=== PATIENT | male | born 1950 | race Caucasian/White ===

== ENCOUNTER 2020-12-12 06:31 | Inpatient (IN) | payer OTHER ==
[~2020-12-12] VITALS: Ht 167.6 cm; Wt 47.8 kg
--- NOTE | 2020-12-12 06:45 | NUR ---
pt [id number] from [facility] with c/o blood in stool and vomitting. pt alert but none responsive. not ambulatory with esparza and g tube in place.
[2020-12-12] MEDS ORDERED: IV NS 0.9% 500 ML BAG IV ONE (07:00)
--- NOTE | 2020-12-12 07:05 | NUR ---
line established R 20g AC & L 18g AC
--- NOTE | 2020-12-12 07:13 | NUR ---
BLOOD AND URINE SPECIMEN COLLECTED AND SENT TO LAB
[2020-12-12 07:53] LABS: BASOPHILS # (AUTO) 0.1 K/uL (0.0-0.2); BASOPHILS % (AUTO) 0.3 % (0.0-2.0); EOSINOPHILS % (AUTO) 1.4 % (0.0-6.0); HEMATOCRIT 37 % (39-51); HEMOGLOBIN 12.1 g/dL (13.5-17.5); LYMPHOCYTES # (AUTO) 1.9 K/uL (0.8-4.8); MEAN CORPUSCULAR HGB CONC 33 g/dl (31.0-36.0); MEAN CORPUSCULAR VOLUME 96 fL (80-96); MONOCYTES # (AUTO) 1.1 K/uL (0.1-1.30); MONOCYTES % (AUTO) 6.2 % (2.0-12.0); NEUTROPHILS # (AUTO) 14.3 K/uL (1.8-8.9); NEUTROPHILS % (AUTO) 81.1 % (43.0-81.0); PLATELET COUNT (AUTO) 510 K/uL (150-450); RED BLOOD CELL COUNT(AUTO) 3.86 MIL/uL (4.5-6.0); WHITE BLOOD COUNT (AUTO) 17.6 K/uL (4.3-11.0)
[2020-12-12 08:02] LABS: CARBON DIOXIDE 26 mmol/L (21-32); CHLORIDE 106 mmol/L (98-107); CREATININE 0.7 mg/dL (0.6-1.3); GLUCOSE 139 mg/dL (74-106); POTASSIUM 5.3 mmol/L (3.5-5.1); SODIUM SERUM 140 mmol/L (136-145); UREA NITROGEN, BLOOD 17 mg/dL (7-18)
--- NOTE | 2020-12-12 08:02 | NUR ---
THE PATIENT IS RECEICED IN ER BED #9. IN ROOM AIR. RESPIRATION REGULAR AND UNLABORED. THE PATIENT IS IN NO APPARENT DISTRESS. ATTACHED TO THE MONITOR. WARM BLANKET PROVIDED FOR COMFORT. WILL CONTINUE TO MONITOR THE PATIENT.
[2020-12-12 08:07] LABS: ALANINE AMINOTRANSFERASE 37 U/L (12-78); ALBUMIN 2.8 g/dL (3.4-5.0); ALKALINE PHOSPHATASE 80 U/L (46-116); BILIRUBIN,DIRECT 0.1 mg/dL (0.0-0.2); BILIRUBIN,TOTAL 0.2 mg/dL (0.2-1.0); LIPASE 290 U/L (73-393)
[2020-12-12 08:25] LABS: ASPARTATE AMINOTRANSFERASE 23 U/L (15-37)
[2020-12-12] MEDS ORDERED: DOCU50LI GT (08:27)
[2020-12-12] MEDS ORDERED: GLUC1KIT IM (08:27)
[2020-12-12] MEDS ORDERED: INSU100V27 SQ (08:27)
[2020-12-12] MEDS ORDERED: AMLO-212 GT (08:27)
[2020-12-12] MEDS ORDERED: ZINC1CAP3 GT (08:27)
[2020-12-12] MEDS ORDERED: ASCO500P18 PO (08:27)
[2020-12-12] MEDS ORDERED: NA P133E RC (08:27)
[2020-12-12] MEDS ORDERED: FAMO20TA8 GT (08:27)
[2020-12-12] MEDS ORDERED: POLY17PO4 GT (08:27)
[2020-12-12] MEDS ORDERED: BACL10TA GT (08:27)
[2020-12-12] MEDS ORDERED: BISA10SU11 RC (08:27)
[2020-12-12] MEDS ORDERED: ASCO-352 GT (08:27)
[2020-12-12] MEDS ORDERED: MAGN400O6 GT (08:27)
[2020-12-12] MEDS ORDERED: NABU-139 GT (08:27)
[2020-12-12] MEDS ORDERED: ATOR40TA GT (08:27)
[2020-12-12] MEDS ORDERED: CRAN3875 GT (08:27)
[2020-12-12] MEDS ORDERED: AMIN30LI27 GT (08:27)
[2020-12-12] MEDS ORDERED: ASPI-1169 GT (08:27)
[2020-12-12] MEDS ORDERED: Modafinil GT (08:27)
[2020-12-12] MEDS ORDERED: ACET650S26 GT (08:27)
[2020-12-12] MEDS ORDERED: MULT9LIQ6 GT (08:27)
[2020-12-12] MEDS ORDERED: METRONIDAZOLE 500MG/ NS 100ML 100 ML IV ONE (09:00)
[2020-12-12] MEDS ORDERED: LEVOFLOXACIN 750 MG /D5W 150ML 150 ML IV ONE (09:00)
--- NOTE | 2020-12-12 09:25 | NUR ---
COVID SWAB SENT.
[2020-12-12] MEDS ORDERED: IV NS 0.9% 1,000 ML BAG IV ONE (09:30)
[2020-12-12] MEDS ORDERED: ONDANSETRON HCL/PF 4 MG/2 ML VIAL IVP PRN (10:00)
[2020-12-12] MEDS ORDERED: ACETAMINOPHEN 325 MG TABLET PO PRN (10:00)
[2020-12-12] MEDS ORDERED: Z GUARD REMEDY 2 OZ OINT TP PRN (10:00)
[2020-12-12] MEDS ORDERED: SODIUM POLYSTYRENE SULF. PWD 15 GM UDC PO ONE (10:30)
[2020-12-12] MEDS ORDERED: PANTOPRAZOLE 40 MG VIAL ONE (11:20)
[2020-12-12] MEDS ORDERED: SODIUM POLYSTYRENE SULFONATE 15 G/60 ML BOTTLE ONE ×2 (11:20→11:26)
[2020-12-12] MEDS: PANTOPRAZOLE 40 MG VIAL IV SCH (11:21)
--- NOTE | 2020-12-12 12:49 | NUR ---
room [id number]
--- NOTE | 2020-12-12 12:54 | NUR ---
report given to Tristen LOPEZ for geremias.
[2020-12-12 13:15] VITALS: BP 143/69
--- NOTE | 2020-12-12 13:15 | NUR ---
THE PATIENT IS TRANSFERED TO ASSIGNED ROOM PER ACLS POLICY.
--- NOTE | 2020-12-12 13:20 | NUR ---
RN NOTE RECEIVED PT FROM ER. BROUGHT IN VIA GURNEY. STABLE ON ROOM AIR, SATURATING @97%. NO SOB OR ANY S/S OF RESPIRATORY DISTRESS NOTED. ALERT, NONVERBAL. SKIN IS INTACT. NO PAIN REPORTED AT THIS TIME. IV ACCESS ON L AC #20 AND RFA #20 BOTH INTACT, PATENT AND FLUSHED. NO BELONGINGS. MCQUEEN CATH IN PLACE, DRAINING YELLOW URINE VIA GRAVITY. SAFETY MEASURES IMPLEMENTED. CALL LIGHT WITHIN REACH. BED LOCKED AND IN LOWEST POSITION WITH SIDE RAILS UP X3. WILL CONTINUE TO MONITOR.
[2020-12-12] MEDS: METRONIDAZOLE 500MG/ NS 100ML 500 MG in PREMIX 1 EA IV SCH ×3 (14:21→23:27)
[2020-12-12] MEDS: IV NS 0.9% 1,000 ML IV PRN (14:21)
[2020-12-12 16:00] VITALS: BP 124/64
--- NOTE | 2020-12-12 16:01 | NUR ---
PATIENT PULLING LINES UNABLE TO FOLLOW COMMAND,FORGETFUL, NOTIFIED,WILL USE HAND MITTENS TO LEFT HAND FOR SAFETY.WILL CONTINUE TO MONITOR.
[2020-12-12] MEDS ORDERED: NABUMETONE 500 MG TABLET GT SCH ×2 (17:00)
--- NOTE | 2020-12-12 18:50 | NUR ---
RN CLOSING NOTES NO SIGNIFICANT CHANGES THROUGHOUT THE SHIFT. NO SOB OR ANY DISTRESS NOTED. NO PAIN REPORTED AT THIS TIME. KEPT CLEAN AND COMFORTABLE. ALL DUE MEDS GIVEN. NEEDS ATTENDED. SAFETY MEASURES IN PLACE. WILL ENDORSE TO NIGHT RN FOR CHELSEA.
--- NOTE | 2020-12-12 19:45 | NUR ---
RN OPENING NOTES RECEIVED PT STABLE ON ROOM AIR, SATURATING @97%. NO SOB OR ANY S/S OF RESPIRATORY DISTRESS NOTED. ALERT, NONVERBAL. NO PAIN REPORTED AT THIS TIME. IV ACCESS ON LAC #20 AND RFA #20 BOTH INTACT, PATENT AND FLUSHED. MCQUEEN CATH IN PLACE, DRAINING YELLOW URINE VIA GRAVITY. SAFETY MEASURES IMPLEMENTED. CALL LIGHT WITHIN REACH. PT HAS ON L HAND MITTEN AT THIS TIME. BED LOCKED AND IN LOWEST POSITION WITH SIDE RAILS UP X3. WILL CONTINUE TO MONITOR.
[2020-12-12 20:51] VITALS: BP 145/74
[2020-12-12] MEDS: ATORVASTATIN 40 MG TABLET GT SCH (21:50)
[2020-12-13] VITALS: BP 152/73
[2020-12-13 04:37] VITALS: BP 138/73
[2020-12-13] MEDS: METRONIDAZOLE 500MG/ NS 100ML 500 MG in PREMIX 1 EA IV SCH ×4 (05:28→23:04)
--- NOTE | 2020-12-13 06:44 | NUR ---
RN CLOSING NOTES PT STABLE ON ROOM AIR, SATURATING @97%. NO SOB OR ANY S/S OF RESPIRATORY DISTRESS NOTED. ALERT, NONVERBAL. NO PAIN REPORTED AT THIS TIME. IV ACCESS ON LAC #20 A INTACT, PATENT AND FLUSHED. MCQUEEN CATH IN PLACE, DRAINING YELLOW URINE VIA GRAVITY. SAFETY MEASURES IMPLEMENTED. CALL LIGHT WITHIN REACH. PT HAS ON L HAND MITTEN AT THIS TIME. BED LOCKED AND IN LOWEST POSITION WITH SIDE RAILS UP X3. WILL ENDORSE CARE TO DAY SHIFT NURSE.
[2020-12-13 08:00] VITALS: BP 155/78
[2020-12-13 08:00] LABS: BASOPHILS % (AUTO) 0.3 % (0.0-2.0); EOSINOPHILS % (AUTO) 1.9 % (0.0-6.0); HEMATOCRIT 32 % (39-51); HEMOGLOBIN 11.1 g/dL (13.5-17.5); LYMPHOCYTES # (AUTO) 1.9 K/uL (0.8-4.8); LYMPHOCYTES % (AUTO) 17.4 % (20.0-44.0); MEAN CORPUSCULAR HGB CONC 34 g/dl (31.0-36.0); MEAN CORPUSCULAR VOLUME 94 fL (80-96); MONOCYTES # (AUTO) 0.8 K/uL (0.1-1.30); MONOCYTES % (AUTO) 7.8 % (2.0-12.0); NEUTROPHILS # (AUTO) 7.9 K/uL (1.8-8.9); NEUTROPHILS % (AUTO) 72.6 % (43.0-81.0); PLATELET COUNT (AUTO) 467 K/uL (150-450); RED BLOOD CELL COUNT(AUTO) 3.41 MIL/uL (4.5-6.0); WHITE BLOOD COUNT (AUTO) 10.9 K/uL (4.3-11.0)
--- NOTE | 2020-12-13 08:15 | NUR ---
RN OPENING NOTES PT AWAKE AND STABLE ON ROOM AIR, SATURATING @97%. NO SOB OR ANY S/S OF RESPIRATORY DISTRESS NOTED. ALERT, NONVERBAL. NO PAIN REPORTED AT THIS TIME. IV ACCESS ON LAC #20 INTACT, PATENT AND RUNNING NS @75 ML/HR. MCQUEEN CATH IN PLACE, DRAINING YELLOW URINE VIA GRAVITY. SAFETY MEASURES IMPLEMENTED. CALL LIGHT WITHIN REACH. GT IS CLAMPED AND PT IS NPO. PORTABLE TELE MONITOR CHECKED AND WORKING. PT HAS ON L HAND MITTEN AT THIS TIME. BED LOCKED AND IN LOWEST POSITION WITH SIDE RAILS UP X3. WILL CONTINUE TO MONITOR
[2020-12-13 08:23] LABS: ALBUMIN 2.5 g/dL (3.4-5.0); BILIRUBIN,TOTAL 0.4 mg/dL (0.2-1.0); CALCIUM, SERUM 8.5 mg/dL (8.5-10.1); CREATININE 0.7 mg/dL (0.6-1.3); MAGNESIUM 1.9 mg/dL (1.8-2.4); PHOSPHORUS 2.6 mg/dL (2.5-4.9); POTASSIUM 3.9 mmol/L (3.5-5.1); TOTAL PROTEIN, SERUM 6.3 g/dL (6.4-8.2)
[2020-12-13 08:33] LABS: THYROID STIMULATING HORMONE 3.499 uIU/mL (0.358-3.74)
[2020-12-13] MEDS: AMLODIPINE BESYLATE 5 MG TABLET GT SCH (08:51)
[2020-12-13] MEDS: LEVOFLOXACIN 500 MG /D5W 100ML 500 MG in PREMIX 1 EA IV SCH (08:52)
[2020-12-13] MEDS: PANTOPRAZOLE 40 MG VIAL IV SCH (09:39)
[2020-12-13 12:00] VITALS: BP 132/78
--- NOTE | 2020-12-13 12:06 | NUR ---
RN NOTE SEE BY DR. GANT, NO GI CONSULT NEEDED AT THIS TIME ORDERED, START ON TUBE FEEDING PER MD CONTINUE PREVIOUS TUBE FEEDING, CALLED [facility] NURSE CARMELO PREVIOUS FEEDING OF GLUCERNA 1.2 @ 600CC/HR X 20HRS /DAY, ORDERS NOTED CARRIED OUT, WILL CONTINUE TO MONITOR FOR BLEEDING.
[2020-12-13] MEDS: IV NS 0.9% 1,000 ML IV PRN ×2 (15:31→17:42)
--- NOTE | 2020-12-13 15:40 | NUR ---
RN NOTE BLOOD CULTURE PRELIMINARY REPORT POSITIVE FOR GRAM + COCCI IN [place], CALLED [facility], Jakob WOODSON NOTIFIED.
[2020-12-13 16:00] VITALS: BP 135/78
[2020-12-13] MEDS: GLUCERNA 1.2 1,000 ML BOTTLE GT PRN (18:06)
--- NOTE | 2020-12-13 18:49 | NUR ---
RN CLOSING NOTES PT STABLE ON ROOM AIR, SATURATING @97%. NO SOB OR ANY S/S OF RESPIRATORY DISTRESS NOTED. ALERT, NONVERBAL. NO PAIN REPORTED AT THIS TIME. IV ACCESS ON LAC #20 A INTACT, PATENT AND FLUSHED. MCQUEEN CATH IN PLACE, DRAINING YELLOW URINE VIA GRAVITY. URINE OUTPUT OF 700 ML GT TUBE ON RUNNING AT 30ML WITH THE GOAL TO BE 60 ML/HR SAFETY MEASURES IMPLEMENTED. CALL LIGHT WITHIN REACH. PT HAS ON L HAND MITTEN AT THIS TIME. BED LOCKED AND IN LOWEST POSITION WITH SIDE RAILS UP X3. WILL ENDORSE CARE TO DAY SHIFT NURSE.
--- NOTE | 2020-12-13 19:30 | NUR ---
RN NOTE RECEIVED PATIENT ON ISOLATION FOR COVID. PATIENT IS NONVERBAL. TOLERATING ROOM AIR. RESPIRATIONS ARE EVEN AND UNLABORED. NO S/S SOB NOTED. NO S/S PAIN AT THIS TIME. EXTERNAL TELE MONITOR READS SINUS TACH. IN NO APPARENT DISTRESS. IV ACCESS IN LAC#20 RUNNING NS@75ML/HR. GTUBE PRESENT, NO RESIDUAL, INCREASED GLUCERNA FEEDING TO 40ML/HR. MCQUEEN CATHETER PRESENT, DRAINING TO GRAVITY. LEFT MITTEN RESTRAINT ON, NO REDNESS, GOOD CAP REFILL. BED IS LOW AND LOCKED, HOB ELEVATED IN SEMI FOWLERS, SIDE RAILS UP X2, CALL LIGHT WITHIN REACH. WILL CONTINUE TO MONITOR THROUGHOUT SHIFT.
[2020-12-13 20:00] VITALS: BP 139/76
[2020-12-13] MEDS: ATORVASTATIN 40 MG TABLET GT SCH (21:26)
[2020-12-13 22:59] LABS: OCCULT BLOOD STOOL POSITIVE (NEGATIVE)
[2020-12-14] VITALS: BP 128/61
[2020-12-14 04:00] VITALS: BP 135/61
[2020-12-14] MEDS: METRONIDAZOLE 500MG/ NS 100ML 500 MG in PREMIX 1 EA IV SCH (05:37)
[2020-12-14] MEDS: IV NS 0.9% 1,000 ML IV PRN ×2 (05:59→21:28)
--- NOTE | 2020-12-14 07:13 | NUR ---
RN NOTE ON COVID ISOLATION. NONVERBAL. REMAINS TOLERATING ROOM AIR. NO RESP DISTRESS. NO PAIN. TELE MONITOR READS SINUS TACH. NO DISTRESS. IV ACCESS MAINTAINED IN LAC#20 RUNNING NS@75ML/HR. GTUBE RUNNING GLUCERNA @60ML/HR. PATIENT HAD TO BLOODY BM, LOOKED LIKE BLOOD CLOTS AND NOT STOOL. BRIGHT RED. MCQUEEN CATHETER OUTPUT 400ML. LEFT MITTEN RESTRAINT MAINTAINED WITH NO REDNESS OR INJURY. BED REMAINS LOW AND LOCKED, HOB ELEVATED IN SEMI FOWLERS, SIDE RAILS UP X2, CALL LIGHT WITHIN REACH. WILL ENDORSE TO ONCOMING SHIFT.
--- NOTE | 2020-12-14 07:30 | NUR ---
RN NOTE RECEIVED PATIENT ON ISOLATION FOR COVID. PATIENT IN BED, AWAKE, PATIENT IS NONVERBAL. TOLERATING ROOM AIR. RESPIRATIONS ARE EVEN AND UNLABORED. NO S/S SOB NOTED. NO S/SX PAIN NOTED AT THIS TIME. EXTERNAL TELE MONITOR READS SINUS TACH. IN NO APPARENT DISTRESS. IV ACCESS IN LAC#20 RUNNING NS@75ML/HR. G-TUBE IN PLACE, NO RESIDUAL, TOLERATING ONGOING FEEDING OF GLUCERNA AT 60ML/HR. MCQUEEN CATHETER PRESENT, DRAINING TO GRAVITY. LEFT MITTEN RESTRAINT ON, NO REDNESS, GOOD CAP REFILL. SAFETY MEASURES IN PLACE: BED IN LOWEST POSITION AND LOCKED, HOB ELEVATED IN SEMI FOWLERS, SIDE RAILS UP X2, CALL LIGHT WITHIN REACH. WILL CONTINUE TO MONITOR ACCORDINGLY.
[2020-12-14 08:02] VITALS: BP 95/60
[2020-12-14] MEDS: LEVOFLOXACIN 500 MG /D5W 100ML 500 MG in PREMIX 1 EA IV SCH (08:20)
[2020-12-14] MEDS: AMLODIPINE BESYLATE 5 MG TABLET GT SCH (08:22)
[2020-12-14] MEDS: PANTOPRAZOLE 40 MG VIAL IV SCH (09:35)
[2020-12-14 10:14] LABS: BASOPHILS % (AUTO) 0.2 % (0.0-2.0); EOSINOPHILS % (AUTO) 1.3 % (0.0-6.0); HEMATOCRIT 29 % (39-51); HEMOGLOBIN 9.8 g/dL (13.5-17.5); LYMPHOCYTES # (AUTO) 1.8 K/uL (0.8-4.8); LYMPHOCYTES % (AUTO) 16.9 % (20.0-44.0); MEAN CORPUSCULAR HGB CONC 34 g/dl (31.0-36.0); MEAN CORPUSCULAR VOLUME 95 fL (80-96); MONOCYTES # (AUTO) 0.8 K/uL (0.1-1.30); MONOCYTES % (AUTO) 7.3 % (2.0-12.0); NEUTROPHILS # (AUTO) 7.7 K/uL (1.8-8.9); NEUTROPHILS % (AUTO) 74.3 % (43.0-81.0); PLATELET COUNT (AUTO) 486 K/uL (150-450); RED BLOOD CELL COUNT(AUTO) 3.09 MIL/uL (4.5-6.0); WHITE BLOOD COUNT (AUTO) 10.4 K/uL (4.3-11.0)
[2020-12-14] MEDS: METRONIDAZOLE 250 MG TABLET GT SCH ×3 (12:22→23:28)
[2020-12-14 12:31] VITALS: BP 101/60
[2020-12-14] MEDS: GLUCERNA 1.2 1,000 ML BOTTLE GT PRN (14:18)
[2020-12-14 16:00] VITALS: BP 127/71
--- NOTE | 2020-12-14 18:39 | NUR ---
RN CLOSING NOTES PT IN RESTING IN BED, ON ROOM AIR, SATURATING @97%. NO SOB OR ANY S/S OF RESPIRATORY DISTRESS NOTED. ALERT, NONVERBAL. NO S/SX OF PAIN NOTED AT THIS TIME. IV ACCESS ON RIGHT WRIST #20 A INTACT, PATENT AND FLUSHES WELL, NO S/SX OF INFILTRATION NOTED. MCQUEEN CATH IN PLACE, DRAINING YELLOW URINE VIA GRAVITY. URINE OUTPUT OF 700 ML , GT TUBE ON RUNNING AT 60ML. SAFETY MEASURES MAINTAINED THROUGHOUT THE SHIFT. CALL LIGHT WITHIN REACH, BED LOCKED AND IN LOWEST POSITION WITH SIDE RAILS UP X3. PT HAS ON L HAND MITTEN AT THIS TIME.. WILL ENDORSE TO ONCOMING SHIFT FOR CHELSEA.
[2020-12-14 20:00] VITALS: BP 126/71
--- NOTE | 2020-12-14 20:00 | NUR ---
RN NOTE RECEIVED PATIENT ON ISOLATION FOR COVID. PATIENT IS NONVERBAL. TOLERATING ROOM AIR. RESPIRATIONS ARE EVEN AND UNLABORED. NO S/S SOB NOTED. NO S/S PAIN AT THIS TIME. EXTERNAL TELE MONITOR READS SINUS TACH. IN NO APPARENT DISTRESS. IV ACCESS IN RFA#20 RUNNING NS@75ML/HR. GTUBE PRESENT, NO RESIDUAL, GLUCERNA FEEDING RUNNING 60ML/HR. MCQUEEN CATHETER PRESENT, DRAINING TO GRAVITY. LEFT MITTEN RESTRAINT ON, NO REDNESS, GOOD CAP REFILL. BED IS LOW AND LOCKED, HOB ELEVATED IN SEMI FOWLERS, SIDE RAILS UP X2, CALL LIGHT WITHIN REACH. WILL CONTINUE TO MONITOR THROUGHOUT SHIFT.
[2020-12-14] MEDS: ATORVASTATIN 40 MG TABLET GT SCH (21:28)
[2020-12-15] VITALS: BP 111/72
[2020-12-15 04:00] VITALS: BP 105/63
[2020-12-15] MEDS: METRONIDAZOLE 250 MG TABLET GT SCH ×2 (06:00→11:25)
[2020-12-15] MEDS: GLUCERNA 1.2 1,000 ML BOTTLE GT PRN (06:08)
--- NOTE | 2020-12-15 07:23 | NUR ---
RN NOTE PATIENT ON ISOLATION FOR R/O COVID. NONVERBAL. TOLERATING ROOM AIR. NO RESP DISTRESS. NO PAIN. EXTERNAL TELE MONITOR READS SINUS TACH. NO DISTRESS. IV ACCESS IN RFA#20 RUNNING NS@75ML/HR. GTUBE RUNNING GLUCERNA @60ML/HR. MCQUEEN CATHETER OUTPUT 1025. LEFT MITTEN RESTRAINT ON, NO REDNESS, GOOD CAP REFILL. BED REMAINS LOW AND LOCKED, HOB ELEVATED IN SEMI FOWLERS, SIDE RAILS UP X2, CALL LIGHT WITHIN REACH. WILL ENDORSE TO ONCOMING SHIFT.
--- NOTE | 2020-12-15 07:30 | NUR ---
RN OPENING NOTES RECEIVED PATIENT IN BED, AWAKE, ON ISOLATION FOR R/O COVID PCR PENDING. PT IS NONVERBAL. TOLERATING WITH NO SOB NOTED. PT DOESNT SEEM TO BE IN PAIN. IV ACCESS IN RFA#20 RUNNING NS@75ML/HR. GTUBE RUNNING GLUCERNA @60ML/HR. MCQUEEN CATHETER RUNNING YELLOW COLOR URINE. LEFT MITTEN RESTRAINT ON, NO REDNESS, GOOD CAP REFILL. BED REMAINS LOW AND LOCKED, HOB ELEVATED IN SEMI FOWLERS, SIDE RAILS UP X2, CALL LIGHT WITHIN REACH. WILL CONTINUE TO MONITOR.
[2020-12-15 08:00] VITALS: BP 118/74
[2020-12-15] MEDS: AMLODIPINE BESYLATE 5 MG TABLET GT SCH (08:48)
[2020-12-15] MEDS: LEVOFLOXACIN 500 MG /D5W 100ML 500 MG in PREMIX 1 EA IV SCH (08:49)
[2020-12-15] MEDS: PANTOPRAZOLE 40 MG VIAL IV SCH (09:46)
[2020-12-15] MEDS: IV NS 0.9% 1,000 ML IV PRN ×2 (11:10→23:33)
[2020-12-15 12:00] VITALS: BP 126/82
--- NOTE | 2020-12-15 13:36 | NUR ---
RN NOTES; PT SEEN BY DR. ROGERS. ORDERED EGD, PT TO BE NPO AFTER MIDNIGHT.
--- NOTE | 2020-12-15 14:38 | NUR ---
[facility] patient pcr negative,requested lab to update records.
[2020-12-15 16:00] VITALS: BP 131/64
[2020-12-15] MEDS: METRONIDAZOLE 500 MG TABLET GT SCH (17:15)
--- NOTE | 2020-12-15 18:13 | NUR ---
RN CLOSING NOTES PATIENT IN BED RESTING, PCR NEGATIVE. PT IS NONVERBAL. ON ROOM AIR AND TOLERATING IT WELL WITH NO SOB NOTED. IV ACCESS IN RFA#20 RUNNING NS@75ML/HR. GTUBE RUNNING GLUCERNA @60ML/HR. MCQUEEN CATHETER RUNNING YELLOW COLOR URINE WITH AN OUTPUT OF 1,900ML. LEFT MITTEN RESTRAINT ON TO BE RENEWED AT MIDNIGHT. PT IS NPO AFTER MIDNIGHT, EGD TO BE DONE IN THE MORNING. ALL CONSENTS SIGNTED. BED REMAINS LOW AND LOCKED, HOB ELEVATED IN SEMI FOWLERS, SIDE RAILS UP X2, CALL LIGHT WITHIN REACH. PT KEPT CLEAN,DRY AND COMFORTABLE. ENDORSED TO DOCTOR'S ASSISTANT RN IN STABLE CONDITION.
[2020-12-15 20:00] VITALS: BP 104/62
[2020-12-15] MEDS: ATORVASTATIN 40 MG TABLET GT SCH (21:26)
[2020-12-16] MEDS: METRONIDAZOLE 500 MG TABLET GT SCH ×4 (00:31→17:57)
[2020-12-16 04:00] VITALS: BP 105/57
--- NOTE | 2020-12-16 07:32 | NUR ---
RN OPENING NOTES RECEIVED PATIENT IN BED, AWAKE, PT PCR IS NEGATIVE. PT IS NPO FOR EGD THIS MORNING. PT IS NONVERBAL. TOLERATING RA WITH NO SOB NOTED. NO PAIN NOTED EVIDENCE BY FACIAL EXPRESSION. IV ACCESS IN RFA#20 RUNNING NS@75ML/HR. GTUBE RUNNING GLUCERNA @60ML/HR. MCQUEEN CATHETER RUNNING YELLOW COLOR URINE. LEFT MITTEN RESTRAINT ON, NO REDNESS, GOOD CAP REFILL. BED REMAINS LOW AND LOCKED, HOB ELEVATED IN SEMI FOWLERS, SIDE RAILS UP X2, CALL LIGHT WITHIN REACH. WILL CONTINUE TO MONITOR.
[2020-12-16 08:00] VITALS: BP 113/58
[2020-12-16] MEDS: LEVOFLOXACIN 500 MG /D5W 100ML 500 MG in PREMIX 1 EA IV SCH (08:28)
[2020-12-16] MEDS: PANTOPRAZOLE 40 MG/PACK PACK GT SCH (08:29)
[2020-12-16] MEDS: AMLODIPINE BESYLATE 5 MG TABLET GT SCH (08:30)
[2020-12-16] MEDS ORDERED: ANESTHESIA TRAY IN PYXIS 1 EA TRAY MC ONE (12:46)
--- NOTE | 2020-12-16 14:36 | NUR ---
RN NOTES; PT ARRIVED BACK FROM OR. V/S TAKEN FOLLOWS T 98.2, P 90, RR, 18, BP 113/66 02 SAT 98%. NO SIGNS OF DISTRESS NOTED. PT IN STABLE CONDITION. WILL CONTINUE TO MONITOR.
--- NOTE | 2020-12-16 18:23 | NUR ---
RN CLOSING NOTES; PT CAME IN WITH A DX OF SEPSIS. PT IS AWAKE, OBTUNDED. BILATERAL UPPER EXTREMITY EDEMA NOTED. PODIATRY CONSULT DONE, CONTINUE WITH BETADINE AND DRESSING. WOUND CARE DONE AND TOLERATED WELL. WOUND CONSULT DONE. ARTERIAL DOPPLER TO LOWER EXTREMITY DONE. R HAND #20 1/2@75ML/HR, FLUSHED AND PATENT. PT TOLERATED ALL MEDS. PT KEPT CLEAN, DRY, AND COMFORTABLE. ENDORSED TO FISH CLEANER NURSE IN STABLE CONDITION. Addendum: 12/16/20 at 1827 by UZMA LYON RN RN NOTES; NOTES ON WRONG PATIENT.
--- NOTE | 2020-12-16 18:29 | NUR ---
RN CLOSING NOTES; PT RESTING IN SUPINE POS. ALERT AND NON VERBAL. PT HAD EGD PROCEDURE DONE EARLY AFTERNOON. PT CAME BACK IN STABLE CONDITION. RESUME ALL ORDERS PRIOR TO PROCEDURE. PT HAS L MITTEN TO BE RENEWED AT MIDNIGHT. RAC #20 NS@75ML/HR. PATENT WITH NO SIGNS OF INFILTRATION. PT KEPT CLEAN, DRY, AND COMFORTABLE WITH CALL LIGHT WITHIN REACH. BED LOCKED IN LOWEST POSITION, WITH SIDE RAILS UP. ENDORSED TO CORK MIXER RN IN STABLE CONDITION.
[2020-12-16 20:00] VITALS: BP 120/69
[2020-12-16] MEDS: ATORVASTATIN 40 MG TABLET GT SCH (21:42)
[2020-12-17] MEDS: METRONIDAZOLE 500 MG TABLET GT SCH ×4 (00:35→17:20)
[2020-12-17 04:00] VITALS: BP_SYST 136; BP_SYST 138; BP_DIAS 74; BP_DIAS 75
--- NOTE | 2020-12-17 04:00 | NUR ---
ms rn receiving note received report from cristal. received patient at this time via bed. alert but non-verbal. no s/s of apparent distress tolerating room air. not exhibiting pain via flacc. mittens on left side noted. g tube in place. iv in r. forearm noted -- awaiting for the orders to start on fluids and feeding. intact skin with just scrotal excoriation. esparza draining cloudy, pricila urine. safety in place. will monitor patient.
--- NOTE | 2020-12-17 05:35 | NUR ---
MS-1/COLT PT TRANSFERRED TO ROOM 311-1
[2020-12-17] MEDS: IV NS 0.9% 1,000 ML IV PRN (06:56)
[2020-12-17 07:07] LABS: BASOPHILS % (AUTO) 0.3 % (0.0-2.0); EOSINOPHILS % (AUTO) 1.6 % (0.0-6.0); HEMATOCRIT 26 % (39-51); HEMOGLOBIN 9.1 g/dL (13.5-17.5); LYMPHOCYTES # (AUTO) 1.8 K/uL (0.8-4.8); LYMPHOCYTES % (AUTO) 19.4 % (20.0-44.0); MEAN CORPUSCULAR HGB CONC 35 g/dl (31.0-36.0); MEAN CORPUSCULAR VOLUME 93 fL (80-96); MONOCYTES # (AUTO) 0.7 K/uL (0.1-1.30); MONOCYTES % (AUTO) 8.1 % (2.0-12.0); NEUTROPHILS # (AUTO) 6.4 K/uL (1.8-8.9); NEUTROPHILS % (AUTO) 70.6 % (43.0-81.0); PLATELET COUNT (AUTO) 554 K/uL (150-450); RED BLOOD CELL COUNT(AUTO) 2.82 MIL/uL (4.5-6.0); WHITE BLOOD COUNT (AUTO) 9.1 K/uL (4.3-11.0)
--- NOTE | 2020-12-17 07:47 | NUR ---
ms closing report given to Stephen for cont. of care.
[2020-12-17 07:58] LABS: CALCIUM, SERUM 8.5 mg/dL (8.5-10.1); POTASSIUM 3.7 mmol/L (3.5-5.1)
[2020-12-17 07:59] LABS: CREATININE 0.6 mg/dL (0.6-1.3); MAGNESIUM 2.1 mg/dL (1.8-2.4); PHOSPHORUS 3.7 mg/dL (2.5-4.9)
[2020-12-17 08:00] VITALS: BP 131/86
--- NOTE | 2020-12-17 08:00 | NUR ---
RN OPENING NOTE PT AWAKE IN BED RESTING. ON RA WITH NO SOB OR RESPIRATORY DISTRESS PRESENT. PT IS ALERT, BUT UNABLE TO ASSESS ORIENTATION. NO PRINT SHOP MANAGER PRESENT. NO EDEMA PRESENT. ON BEDREST WITH DIAPER PRESENT. F/C PRESENT AND DRAINING WELL. SKIN PROBLEMS PRESENT, PICTURES IN CHART, NO ORDERS GIVEN.GT PRESENT WITH GLUCERNA RUNNING AT 60 ML/HR. IV PRESENT ON R FA 20G WITH NS RUNNING AT 75 ML/HR. LABS AND ORDERS REVIEWED. SAFETY MEASURES IN PLACE. SIDE RAILS RAISED. BED LOWERED. CALL LIGHT WITHIN REACH. WILL CONTINUE TO MONITOR.
[2020-12-17] MEDS: AMLODIPINE BESYLATE 5 MG TABLET GT SCH (08:22)
[2020-12-17] MEDS: PANTOPRAZOLE 40 MG/PACK PACK GT SCH (08:22)
[2020-12-17] MEDS: LEVOFLOXACIN 500 MG /D5W 100ML 500 MG in PREMIX 1 EA IV SCH (08:22)
[2020-12-17 16:00] VITALS: BP_SYST 131; BP_SYST 143; BP_DIAS 66; BP_DIAS 67; BP_DIAS 86
[2020-12-17] MEDS ORDERED: LEVO500T90 GT (16:23)
[2020-12-17] MEDS ORDERED: PANT40TA2 GT (16:23)
--- NOTE | 2020-12-17 16:54 | NUR ---
RN NOTE REPORT GIVEN TO JOHN CR
--- NOTE | 2020-12-17 18:54 | NUR ---
RN CLOSING NOTE PT AWAKE IN BED RESTING. ON RA WITH NO SOB OR RESPIRATORY DISTRESS PRESENT. PT IS ALERT, BUT UNABLE TO ASSESS ORIENTATION. NO FINANCIAL RETIREMENT PLAN SPECIALIST PRESENT. NO EDEMA PRESENT. ON BEDREST WITH DIAPER PRESENT. F/C PRESENT AND DRAINING WELL. SKIN INTACT. GT PRESENT WITH GLUCERNA RUNNING AT 60 ML/HR. LABS AND ORDERS REVIEWED. SAFETY MEASURES IN PLACE. SIDE RAILS RAISED. BED LOWERED. CALL LIGHT WITHIN REACH. WILL GIVE REPORT TO NIGHT NURSE FOR CHELSEA.
--- NOTE | 2020-12-17 19:29 | NUR ---
LAPPING MACHINE TENDER NOTE PT DISCHARGED TO [facility] VIA EMT. IV LINES REMOVED. EXITCARE EDUCATION UTILIZED AND GIVEN TO PT. ID BANDS REMOVED. F/C PRESENT AND WILL BE BROUGHT WITH PT. WILL RETURN FOR COLONOSCOPY WITHIN 1 WEEK. REPORT GIVEN TO SHAYE LOPEZ. TRANSPORTED OUT OF HOSPITAL VIA AMBULANCE.
[2020-12-18] MEDS ORDERED: LEVOFLOXACIN (250MG) 250 MG TABLET PO SCH (09:00)
== END 2020-12-17 19:00 | DRG 386 ==
LOC: ER 06:35 → TRANSITION 09:38 → TELE1 12:51 → MEDSG1 12-15 07:52 → MED 12-17 05:36
PROVIDERS: ADMIT Internal Medicine; ATTEND Nurse Practitioner Acute Care
PROC: 0DB58ZX Excision of Esophagus, Via Natural or Artificial Opening Endoscopic, Diagnostic (ICD-10-PCS; principal; 2020-12-16)
DX: K51.30 Ulcerative (chronic) rectosigmoiditis without complications (principal); D62 Acute posthemorrhagic anemia; K21.00 Gastro-esophageal reflux disease with esophagitis, without bleeding; E87.5 Hyperkalemia; E78.5 Hyperlipidemia, unspecified; I12.9 Hypertensive chronic kidney disease with stage 1 through stage 4 chronic kidney disease, or unspecified chronic kidney disease; K52.9 Noninfective gastroenteritis and colitis, unspecified; N18.9 Chronic kidney disease, unspecified; Z86.73 Personal history of transient ischemic attack (TIA), and cerebral infarction without residual deficits; N40.0 Benign prostatic hyperplasia without lower urinary tract symptoms; E11.22 Type 2 diabetes mellitus with diabetic chronic kidney disease; Z88.5 Allergy status to narcotic agent; Z88.0 Allergy status to penicillin; Z79.4 Long term (current) use of insulin; Z79.82 Long term (current) use of aspirin; Z79.899 Other long term (current) drug therapy; K59.00 Constipation, unspecified; K44.9 Diaphragmatic hernia without obstruction or gangrene
CPT/HCPCS: 36415; 71045-TC; 80048-TC; 80053-TC; 80061-TC; 80076-TC; 82272-TC; 82962-TC; 83605-TC; 83690-TC; 83735-TC; 84100-TC; 84443-TC; 84484-TC; 85025-TC; 85730-TC; 86850-TC; 87040-TC; 87081-TC; 88305-TC; 88313-TC; A4216; C9113; G0378; J1956; J2405; J2704; J3490; J7030; U0003